=== PATIENT | male | born 1970 ===

== ENCOUNTER 2022-03-31 10:59 | Outpatient (REF) | payer OTHER, SELFPAY ==
[2022-03-31 14:59] LABS: Anion Gap 10.4 mmol/L (3-11); BUN 16 mg/dL (7-18); CO2 26.6 mmol/L (21.0-32.0); CREATININE 1.1 mg/dL (0.70-1.30); Calcium 8.5 mg/dL (8.5-10.1); Chloride 103 mmol/L (98-107); Glucose 123 mg/dL (74-106); Potassium 4.2 mmol/L (3.5-5.1); Sodium 140 mmol/L (136-145); TSH (W/Ref FT4) 1.11 uIU/mL (0.36-3.74)
[2022-04-01 12:40] LABS: Lyme Ab w Rflx to Lyme Confirm Negative (Negative)
== END 2022-03-31 11:00 | disposition home or self-care (01) ==
LOC: NCHCN 10:59
PROVIDERS: PCP Family Medicine; Visit Provider Family Medicine
DX: R03.0 Elevated blood-pressure reading, without diagnosis of hypertension (principal)
CPT/HCPCS: 80048; 84443; 86618

== ENCOUNTER 2022-04-13 12:14 | Outpatient (REF) | payer OTHER, SELFPAY ==
[2022-04-13 20:20] LABS: ESR 7 mm/hr (0-20)
== END 2022-04-13 12:15 | disposition home or self-care (01) ==
LOC: LBN 12:14
PROVIDERS: PCP Family Medicine; Visit Provider Nurse Practitioner Family
DX: R51.9 Headache, unspecified (principal); M54.2 Cervicalgia
CPT/HCPCS: 85652

== ENCOUNTER 2022-12-10 12:12 | Outpatient (CLI) | payer OTHER, SELFPAY ==
[2022-12-10] MEDS: Barium Sulfate 2% W/V-Berry Smoothie 450 ML BTL 900 ML PO (14:24)
[2022-12-10 14:52] LABS: CREATININE 1.1 mg/dL (0.70-1.30); Estimated GFR 79.77 (mL/min/1.73m2)
--- NOTE | 2022-12-10 16:30 | DI.CT_ITS ---
Exam(s) CT ABDOMEN PELVIS W EXAM: CT ABDOMEN PELVIS W CLINICAL HISTORY: UMBILICAL HERNIA. TECHNIQUE: Imaging Protocol: Axial computed tomography images with coronal and sagittal reformatted images were created and reviewed CONTRAST MATERIAL: Intravenous: Omnipaque 350 Contrast volume:100 ml Oral: yes / COMPARISON: No exams were available for comparison FINDINGS: ABDOMEN: Lung Bases: Normal where visualized. Liver: Enlarged liver with [id number] fatty infiltration. No measurable mass. Gallbladder and biliary tract: No radiodense calculus or dilation. Pancreas: Normal density, no abnormal calcifications or inflammatory process. Spleen: Normal. Kidneys: Normal size, contour and axis. No radiodense stones or obstructive uropathy. No suspicious m asses seen. Stomach and small bowel: Small diverticulum of the descending duodenum. Adrenal glands: No masses seen. Abdominal Aorta: Abdominal portion non-dilated. Mild atherosclerotic changes. Soft tissues: Small fatty containing umbilical hernia measuring 2.5 x 2.2 x 3.2 cm PELVIS: Bladder: No gross wall thickening. No calculi.No focal mass. Bowel: No obstruction. No bowel wall thickening. Appendix normal. Mild diverticulosis. Peritoneal cavity: No ascites, collection or mesenteric inflammatory response. Bones: Degenerative changes lower lumbar spine. Reproductive organs: Within normal limits. Lymph nodes: Unremarkable. Soft tissues: Fatty containing right inguinal hernia. Impression: Small fatty containing umbilical hernia. RADIATION DOSE DELIVERED: 1,230.29mGy.cm Total DLP DATA REPOSITORY: All CT scans at this facility are submitted to the National Radiology Data Registry (NRDR) Dose Index Registry (DIR) with the [employer] ([employer]). RADIATION OPTIMIZATION: All CT scans at this facility use at least one of these dose optimization te chniques: automated exposure control; mA and/or kV adjustment per patient size (includes targeted exa ms where dose is matched to clinical indication); or iterative reconstruction.
[2022-12-10] MEDS: Omnipaque 350 MG/ML 100 ML BTL IJ (16:39)
[2022-12-10] MEDS: Normal Saline - Diluent 50 ML VIAL IJ (16:39)
[2022-12-10] MEDS: Normal Saline Flush 10 ML SYR IVP (16:40)
--- NOTE | 2022-12-10 17:32 | DI.VRAD_ITS ---
PROCEDURE INFORMATION: Exam: CT Abdomen And Pelvis With Contrast Exam date and time: 12/10/2022 4:36 PM Age: 52 years old Clinical indication: Other: Umbilical hernia TECHNIQUE: Imaging protocol: Computed tomography of the abdomen and pelvis with contrast. Contrast material: 350; Contrast volume: 100 ml; Contrast route: INTRAVENOUS (IV); COMPARISON: No relevant prior studies available. FINDINGS: Lungs: Partially visible nodule in the subpleural anterior right lower lobe measuring 5 mm. Noncalcified. No lung base infiltrates. Pleural spaces: No pleural effusion. Heart: Normal heart size. No pericardial effusion. No coronary artery atherosclerotic calcium visible. Liver: Diffuse moderate fatty liver change. Gallbladder and bile ducts: Normal. No calcified stones. No ductal dilation. Pancreas: The pancreas is normal in contour and attenuation. Spleen: The spleen is normal in size, contour and attenuation. Adrenal glands: The adrenal glands are normal in size and contour bilaterally. Kidneys and ureters: The kidneys bilaterally are unremarkable. Normal attenutation. No hydronephrosis. No calculi. Stomach and bowel: Gastric morphology is unremarkable. No edema. No gastric outlet obstruction.Small bowel loops are normal in course and caliber. There is no mucosal edema or bowel wall thickening. No obstructive features.The colon contains formed fecal material. There is no bowel wall thickening. No inflammatory features. No obstruction. There is diverticulosis without acute diverticulitis. Appendix: No evidence of appendicitis. Intraperitoneal space: No free fluid. No free air. Vasculature: Unremarkable. No abdominal aortic aneurysm. Lymph nodes: Unremarkable. No enlarged lymph nodes. Urinary bladder: Unremarkable as visualized. Reproductive: Unremarkable as visualized. Bones/joints: Degenerative lumbar spine change. Degenerative disc disease L4-L5 and L5-S1. Multilevel degenerative facet disease. No compression fractures. Soft tissues: Moderate size right inguinal hernia containing fat. No acute strangulation. Small umbilical hernia containing fat. No acute strangulation. Umbilical hernia is approximally 2.5 x 2.4 cm transverse and AP. Cephalo caudal length 3.3 cm. Defect in the linea alba 1.1 cm. IMPRESSION: 1. Fat containing umbilical hernia and right inguinal hernia without evidence bowel encroachment. No acute features of strangulation. 2. Fatty liver infiltration. 3. No acute findings within the abdomen or pelvis. 4. Degenerative lumbar spine changes. 5. Partially visible 5 mm right lower lobe nonspecific lung nodule. Likely a granuloma. Dictated and Authenticated by: Lew Bermudez MD. Ordering:BRYSON Johnston MD
== END 2022-12-10 12:32 ==
PROVIDERS: PCP Family Medicine; Visit Provider Physician Assistant Medical
DX: Z01.812 Encounter for preprocedural laboratory examination (principal); K42.9 Umbilical hernia without obstruction or gangrene; K76.0 Fatty (change of) liver, not elsewhere classified; K40.90 Unilateral inguinal hernia, without obstruction or gangrene, not specified as recurrent
CPT/HCPCS: 74177; 82565; J3490

== ENCOUNTER 2022-12-10 17:04 | Outpatient (REF) | payer OTHER, SELFPAY ==
[2022-12-10 16:07] LABS: Abs Immature Grans 0.02 10^3/uL (0.0-0.06); Absolute Basophil Count 0.04 10^3/uL (0.0-0.2); Absolute Monocyte Count 0.67 10^3/uL (0.1-0.8); Absolute Neutrophil Count 4.24 10^3/uL (1.2-6.7); Basophils % 0.6; Eosinophils % 4.1; HCT 44.8 % (40.0-50.0); HGB 14.9 g/dL (13.5-17.5); Immature Grans % 0.3; Lymphocytes % 27.5; MCH 30.7 pg (27.0-33.0); MCHC 33.3 % (32.0-36.0); MCV 92 fL (80-95); MPV 11.6 fL (8.0-11.0); Monocytes % 9.2; Neutrophils % 58.3; Platelet Count 290 10^3/uL (130-400); RBC 4.86 10^6/uL (4.36-5.78); RDW 12.7 % (11.8-14.1); RDW-SD 43.5 fL; WBC 7.27 10^3/uL (4.4-10.8)
[2022-12-10 16:41] LABS: ALT 33 U/L (16-63); AST 19 U/L (15-37); Alkaline Phosphatase 79 U/L (46-116); Anion Gap 6.7 mmol/L (3-11); BUN 15 mg/dL (7-18); Bilirubin, Total 0.5 mg/dL (0.2-1.0); CO2 28.3 mmol/L (21.0-32.0); CREATININE 1.1 mg/dL (0.70-1.30); Calcium 9.2 mg/dL (8.5-10.1); Chloride 104 mmol/L (98-107); Estimated GFR 79.77 (mL/min/1.73m2); Glucose 100 mg/dL (74-106); Lipase 36 U/L (16-77); Potassium 4.2 mmol/L (3.5-5.1); Sodium 139 mmol/L (136-145)
== END 2022-12-10 17:05 | disposition home or self-care (01) ==
LOC: LBN 17:04
PROVIDERS: PCP Family Medicine; Visit Provider Physician Assistant Medical
DX: I10 Essential (primary) hypertension (principal); K42.9 Umbilical hernia without obstruction or gangrene
CPT/HCPCS: 80053; 83690; 85025

== ENCOUNTER 2025-06-15 01:12 | Outpatient (CLI) | payer OTHER, SELFPAY ==
[2025-06-15 15:12] LABS: Vitamin B12 353 pg/mL (193-986); Vitamin D 25 Total 28 ng/mL (30-100)
== END 2025-06-15 01:13 | disposition home or self-care (01) ==
PROVIDERS: PCP Nurse Practitioner Family; Visit Provider Nurse Practitioner Family
DX: Z98.84 Bariatric surgery status (principal); E83.10 Disorder of iron metabolism, unspecified; E83.50 Unspecified disorder of calcium metabolism; E55.9 Vitamin D deficiency, unspecified
CPT/HCPCS: 36415; 82306; 82607